=== PATIENT | male | born 1960 | race Two or more races ===

== ENCOUNTER 2018-02-17 11:27 | Emergency (ER) | payer SELFPAY | END 2018-02-17 12:47 | disposition home or self-care (01) | LOC: ER 12:47 | DX: J02.9 Acute pharyngitis, unspecified (principal); H66.93 Otitis media, unspecified, bilateral; F17.200 Nicotine dependence, unspecified, uncomplicated | CPT/HCPCS: 99283 ==

== ENCOUNTER 2019-03-24 11:00 | Emergency (ER) | payer SELFPAY ==
[~2019-03-24] VITALS: Ht 165.1 cm; Wt 68.0 kg
[2019-03-24 11:00] VITALS: BP 111/79
[~2019-03-24 11:00] MED LIST: AMOX500T PO; CYCL10TA2 PO; HYDR-2761 PO; IBUP-1007 PO; NAPR250T6 PO; PRED50TA PO
--- NOTE | 2019-03-24 11:32 | PHYS DOC ---
Past Medical History Past Medical History: No Pertinent History Past Surgical History: No Surgical History Alcohol Use: Occasionally Drug Use: None Adult General Chief Complaint Chief Complaint: SHOULDER INJURY [facility] HPI Patient is a 59 year old male who presents with right scapula pain with movement since Monday night. 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 Patient does not remember injuring her pulling a muscle in his back. Patient rates his pain a 10 out of 10 and states it's sharp and tight. Review of Systems Review of Systems Constitutional: Denies fever or chills [] Eyes: Denies change in visual acuity, redness, or eye pain [] HENT: Denies nasal congestion or sore throat [] Respiratory: Denies cough or shortness of breath [] Cardiovascular: No additional information not addressed in HPI [] GI: Denies abdominal pain, nausea, vomiting, bloody stools or diarrhea [] : Denies dysuria or hematuria [] Musculoskeletal: Right scapula back pain or joint pain [] Integument: Denies rash or skin lesions [] Neurologic: Denies headache, focal weakness or sensory changes [] Endocrine: Denies polyuria or polydipsia [] All other systems were reviewed and found to be within normal limits, except as documented in this note. Allergies Allergies Allergies Coded Allergies Type Severity Reaction Last Updated Verified No Known Drug Allergies 07/09/16 No Physical Exam Physical Exam Constitutional: Well developed, well nourished, no acute distress, non-toxic a ppearance. [] HENT: Normocephalic, atraumatic, bilateral external ears normal, oropharynx moist, no oral exudates, nose normal. [] Eyes: PERRLA, EOMI, conjunctiva normal, no discharge. [] Neck: Normal range of motion, no tenderness, supple, no stridor. [] Cardiovascular:Heart rate regular rhythm, no murmur [] Lungs & Thorax: Bilateral breath sounds clear to auscultation [] Abdomen: Bowel sounds normal, soft, no tenderness, no masses, no pulsatile masses. [] Skin: Warm, dry, no erythema, no rash. [] Back: Right scapula tenderness, no CVA tenderness. [] Extremities: Denies tenderness, no cyanosis, no clubbing, ROM intact, no edema. [] Neurologic: Alert and oriented X 3, normal motor function, normal sensory function, no focal deficits noted. [] Psychologic: Affect normal, judgement normal, mood normal. [] Current Patient Data Vital Signs Vital Signs Date Time Temp Pulse Resp B/P (MAP) Pulse Ox O2 Delivery O2 Flow Rate FiO2 03/24/19 11:00 98.3 90 16 111/79 (90) 98 Room Air 98.3 EKG EKG [] Radiology/Procedures Radiology/Procedures [] Course & Med Decision Making Course & Med Decision Making Patient is a 59 year old male who presents with right scapula pain with movement since Monday night. 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 Patient does not remember injuring her pulling a muscle in his back. Patient rates his pain a 10 out of 10 and states it's sharp and tight. There is some tenderness over the scapula area in right with palpation and pain with movement of the right extremity. Patient has full range of motion of the right arm. There is no bruising or deformity seen or felt. There is no swelling to the right arm or to the back. Ambulatory with steady gait. Skin pink warm and dry. Patient denies a history and takes no medications daily. Patient states she's been taking aspirins for the pain but is not helping. Alert and oriented. Patient is given muscle relaxers, Erwin and told to take ibuprofen instead of aspirin. Dragon Disclaimer Dragon Disclaimer This electronic medical record was generated, in whole or in part, using a voice recognition dictation system. Departure Departure Impression: Primary Impression: Muscle strain Disposition: 01 HOME, SELF-CARE Condition: STABLE Referrals: NO PCP (PCP) Patient Instructions: Muscle Strain Additional Instructions: Follow-up with primary care provider. Take medications as prescribed. Remember do not take while you are at work. Only take ibuprofen or Tylenol if you are working as a medication to make you sleepy. Scripts Ibuprofen (IBUPROFEN) 600 Mg Tablet 600 MG PO PRN Q6HRS PRN for INFLAMMATION, #20 TAB Prov: RUSS LUEVANO BRAIDER OPERATOR 03/24/19 Hydrocodone/Apap 5-325 (NORCO 5-325 TABLET) 1 Each Tablet 1 TAB PO PRN Q6HRS PRN for PAIN, #10 TAB 0 Refills Prov: RUSS LUEVANO APRN 03/24/19 Orphenadrine Citrate (ORPHENADRINE CITRATE) 100 Mg Tablet.er 1 TAB PO BID, #20 TAB 1 Refill Prov: RUSS LUEVANO APRN 03/24/19 RUSS LUEVANO APRN Mar 24, 2019 11:32
[2019-03-24] MEDS ORDERED: HYDR-3164 PO (11:38)
[2019-03-24] MEDS ORDERED: ORPH100T PO (11:38)
[2019-03-24] MEDS ORDERED: IBUP-1007 PO (11:38)
== END 2019-03-24 11:43 | disposition home or self-care (01) ==
LOC: ER 11:00
DX: S46.811A Strain of other muscles, fascia and tendons at shoulder and upper arm level, right arm, initial encounter (principal); X50.0XXA Overexertion from strenuous movement or load, initial encounter; Y93.89 Activity, other specified; Y92.89 Other specified places as the place of occurrence of the external cause; Y99.0 Civilian activity done for income or pay
CPT/HCPCS: 99283

== ENCOUNTER → 2020-07-03 | Emergency (ER) | payer SELFPAY ==
[~2020-07-03] VITALS: Ht 165.1 cm; Wt 72.3 kg
[~2020-07-03] MED LIST changes: +AMOX500C PO; +CHLO15MO2 PO; +CONTRAST GIVEN. MC PRN; +HYDR-3164 PO; +IOHEXOL 300 MG/ML 100ML VIAL. IV ONE; +ORPH100T PO
[2020-07-03 11:12] LABS: BASO # 0.1 x10^3/uL (0.0-0.2); BASO % 0 % (0-3); EOS # 0.1 x10^3/uL (0.0-0.7); EOS % 1 % (0-3); HEMATOCRIT 44.7 % (39.0-53.0); HEMOGLOBIN 15.3 g/dL (13.0-17.5); LYMPH # 1.7 x10^3/uL (1.0-4.8); LYMPH % 14 % (24-48); MEAN CORPUSCULAR HEMOGLOBIN 32 pg (25-35); MEAN CORPUSCULAR HGB CONC 34 g/dL (31-37); MEAN CORPUSCULAR VOLUME 93 fL (79-100); MONO # 0.9 x10^3/uL (0.0-1.1); MONO % 8 % (0-9); NEUT # 9.5 x10^3/uL (1.8-7.7); NEUT % 78 % (31-73); PLATELET COUNT 242 x10^3/uL (140-400); RED CELL DISTRIBUTION WIDTH 13.4 % (11.5-14.5); WHITE BLOOD COUNT 12.2 x10^3/uL (4.0-11.0)
[2020-07-03 11:23] LABS: CREATININE 0.8 mg/dL (0.7-1.3); GFR 99.3; POTASSIUM 4.1 mmol/L (3.5-5.1)
[2020-07-03 11:29] LABS: ALBUMIN/GLOBULIN RATIO 1.3 (1.0-1.7); TOTAL BILIRUBIN 0.7 mg/dL (0.2-1.0); TOTAL PROTEIN 7.1 g/dL (6.4-8.2)
--- NOTE | 2020-07-03 12:05 | RAD ---
PQRS Compliance Statement: One or more of the following individualized dose reduction techniques were utilized for this examination: 1. Automated exposure control 2. Adjustment of the mA and/or kV according to patient size 3. Use of iterative reconstruction technique CT MAXILLOFACIAL W/CONTRAST 07/03/2020 10:33 AM Indication: Ulceration of tongue 4 mild and swelling of the neck COMPARISON: None available. TECHNIQUE: Multiple CT images of the maxillofacial structures were obtained after the intravenous administration of 70 cc Omnipaque 300. Coronal and sagittal reformats are provided. FINDINGS: There is no suspicious enhancement involving the visualized portions of brain parenchyma and posterior fossa. Orbits are normal in appearance. Globes are spherical and contour. No lens dislocation. Extraocular muscles are intact. There is mild mucosal thickening of the left maxillary sinus. Mild mucosal thickening of the right ethmoid air cells. Mild mucosal thickening of the sphenoid sinus. No acute fracture of the maxillofacial structures. Nasal bones are intact. There is minimal deviation of the nasal bone to the left with nasal spur. [place] spaces normal in appearance. Platysma is intact. No significant subcutaneous edema. No pathologically enlarged cervical lymph nodes are identified. Multiple nonenlarged cervical lymph nodes are present. Cervical lymph nodes measure up to 8 mm in the right and 11 mm left level 2 cervical distribution. Parotid and 70 was spaces are intact. A definite tongue mass is not visualized by CT. Genioglossus, hyoglossus and mylohyoid appear intact. No soft tissue abscess is visualized. Parapharyngeal fat is preserved. There is lucency involving the root of the left maxillary incisor with absent tooth. There may be minimal soft tissue swelling of the upper lip. IMPRESSION: No definite abscess is identified within the neck. Suspect mild swelling about the left. Lucency involving the root of the left maxillary incisor could reflect loss of the tooth. Correlate with any recent trauma. No pathologically enlarged lymph nodes within the cervical distribution. Electronically signed by: Brenda Jameson MD (07/03/2020 12:02 PM) [facility]
--- NOTE | 2020-07-03 12:26 | ED.ADGEN ---
Past Medical History Past Medical History: No Pertinent History Past Surgical History: No Surgical History Smoking Status: Current Every Day Smoker Alcohol Use: Occasionally Drug Use: None General Adult EDM: Chief Complaint: TONGUE SWELLING/INJURY HPI: HPI: Patient is a 60-year-old male who presents to the emergency room with an ulceration to his tongue and the floor of his mouth. Patient denies any other symptoms. He has not been ill. He does not have rash anywhere else. He states this is happened one other time and it resolved after swishing with peroxide. He does not typically follow with a physician. He denies any fevers, chills, difficulty swallowing, difficulty talking. He states that this happened overnight. His mouth was normal yesterday and he noticed it this morning when he woke up. Review of Systems: Review of Systems: Complete ROS is negative unless otherwise documented in HPI Current Medications: Current Medications Medications (Trade) Dose Ordered Sig/Dorothy Start Time Stop Time Status Last Admin Dose Admin Info (CONTRAST GIVEN -- Rx MONITORING) 1 each PRN DAILY PRN 07/03/20 12:00 07/05/20 11:59 Iohexol (Omnipaque 300 Mg/ml) 70 ml 1X ONCE 07/03/20 12:00 07/03/20 12:01 DC 07/03/20 12:02 70 ML Allergies: Allergies: Allergies Coded Allergies Type Severity Reaction Last Updated Verified No Known Drug Allergies 07/09/16 No Physical Exam: PE: General: Awake, alert, NAD. Well Nourished, well hydrated. Cooperative HEENT: Atraumatic, EOMI, PERRL, airway patent, moist oral mucosa, ulceration to the tip of the tongue and floor of the mouth with minimal swelling under the jaw, no other lesions, no swelling to the throat, poor dentition Neck: Supple, trachea midline Respiratory: CTA bilaterally, normal effort, no wheezing/crackles CV: RRR, no murmur, cap refill <2 GI: Soft, nondistended, nontender, no masses MSK: No obvious deformities Skin: Warm, dry, intact Neuro: A&O x3, speech NL, sensory and motor grossly intact, no focal deficits Psych: Normal affect, normal mood, not suicidal or homicidal Current Patient Data: Labs: Laboratory Tests Test 07/03/20 10:54 White Blood Count 12.2 x10^3/uL (4.0-11.0) H Red Blood Count 4.80 x10^6/uL (4.30-5.70) Hemoglobin 15.3 g/dL (13.0-17.5) Hematocrit 44.7 % (39.0-53.0) Mean Corpuscular Volume 93 fL (79-100) Mean Corpuscular Hemoglobin 32 pg (25-35) Mean Corpuscular Hemoglobin Concent 34 g/dL (31-37) Red Cell Distribution Width 13.4 % (11.5-14.5) Platelet Count 242 x10^3/uL (140-400) Neutrophils (%) (Auto) 78 % (31-73) H Lymphocytes (%) (Auto) 14 % (24-48) L Monocytes (%) (Auto) 8 % (0-9) Eosinophils (%) (Auto) 1 % (0-3) Basophils (%) (Auto) 0 % (0-3) Neutrophils # (Auto) 9.5 x10^3/uL (1.8-7.7) H Lymphocytes # (Auto) 1.7 x10^3/uL (1.0-4.8) Monocytes # (Auto) 0.9 x10^3/uL (0.0-1.1) Eosinophils # (Auto) 0.1 x10^3/uL (0.0-0.7) Basophils # (Auto) 0.1 x10^3/uL (0.0-0.2) Sodium Level 139 mmol/L (136-145) Potassium Level 4.1 mmol/L (3.5-5.1) Chloride Level 104 mmol/L (98-107) Carbon Dioxide Level 26 mmol/L (21-32) Anion Gap 9 (6-14) Blood Urea Nitrogen 11 mg/dL (8-26) Creatinine 0.8 mg/dL (0.7-1.3) Estimated GFR (Cockcroft-Gault) 99.3 BUN/Creatinine Ratio 14 (6-20) Glucose Level 95 mg/dL (70-99) Calcium Level 9.0 mg/dL (8.5-10.1) Total Bilirubin 0.7 mg/dL (0.2-1.0) Aspartate Amino Transferase (AST) 15 U/L (15-37) Alanine Aminotransferase (ALT) 18 U/L (16-63) Alkaline Phosphatase 63 U/L (46-116) Total Protein 7.1 g/dL (6.4-8.2) Albumin 4.0 g/dL (3.4-5.0) Albumin/Globulin Ratio 1.3 (1.0-1.7) Laboratory Tests 07/03/20 10:54 Laboratory Tests 07/03/20 10:54 Vital Signs: Vital Signs Date Time Temp Pulse Resp B/P (MAP) Pulse Ox O2 Delivery O2 Flow Rate FiO2 07/03/20 10:25 98.5 101 16 129/88 (102) 96 Room Air 98.5 EKG: EKG: [] Heart Score: Risk Factors: Risk Factors: DM, Current or recent (<one month) smoker, HTN, HLP, family history of CAD, obesity. Risk Scores: Score 0 - 3: 2.5% MACE over next 6 weeks - Discharge Home Score 4 - 6: 20.3% MACE over next 6 weeks - Admit for Clinical Observation Score 7 - 10: 72.7% MACE over next 6 weeks - Early Invasive Strategies Radiology/Procedures: Radiology/Procedures: [] Course & Med Decision Making: Course & Med Decision Making Pertinent Labs and Imaging studies reviewed. (See chart for details) Patient is 60-year-old male who presents to the emergency room with a laceration to the tongue. Patient is overall well-appearing. He does not have any other rash. This does not appear concerning for Boubacar Dom syndrome. Given that this occurred overnight this makes it less likely to be oral cancer. CT was done and shows a infected to with surrounding swelling. This could be traumatic ulceration. We will put him on antibiotics and Peridex. I have discussed with him that it is very important he follows up with a dentist. We have discussed that if these do not improve and he will need to see a dentist as soon as possible or return to the emergency room. Patient's test results and vitals while in the ED were fully reviewed and discussed with the patient. Patient is stable and at this time does not need admission to the hospital. We have discussed strict return precautions and the importance of following up with their Primary Care Physician. Patient stated understanding and was given an opportunity to ask any questions. Patient is in agreement with plan. Aaron Disclaimer: Aaron Disclaimer: This electronic medical record was generated, in whole or in part, using a voice recognition dictation system. Departure Departure Impression: Primary Impression: Tongue ulceration Additional Impression: Tooth infection Disposition: 01 DC HOME SELF CARE/HOMELESS Condition: STABLE Referrals: NO PCP (PCP) Patient Instructions: Dental Injury, Oral Ulcers Scripts Amoxicillin (AMOXICILLIN) 500 Mg Capsule 1 CAP PO Q8HRS for infection for 7 Days, #21 CAP Prov: ANGELA DE PAZ MD 07/03/20 Chlorhexidine Gluconate (PERIDEX) 15 Ml Mouthwash 15-30 ML PO TID for 8 Days, #473 ML 0 Refills Prov: ANGELA DE PAZ MD 07/03/20 Problem Qualifiers ANGELA DE PAZ MD Jul 03, 2020 12:25
[2020-07-03 12:45] VITALS: BP 124/86
== END ==
LOC: ER 10:09
DX: K14.0 Glossitis (principal); K04.7 Periapical abscess without sinus; F17.200 Nicotine dependence, unspecified, uncomplicated
CPT/HCPCS: 36415; 70487; 80053; 85025; 99285; Q9967

== ENCOUNTER 2021-06-26 10:02 | Emergency (ER) | payer SELFPAY ==
[~2021-06-26] VITALS: Ht 172.7 cm; Wt 82.0 kg
[~2021-06-26 10:02] MED LIST changes: -CONTRAST GIVEN. MC PRN; +CYCL10TA19 PO; -CYCL10TA2 PO; -IOHEXOL 300 MG/ML 100ML VIAL. IV ONE; +NAPR-699 PO; -NAPR250T6 PO
[2021-06-26 10:10] VITALS: BP 133/83
[2021-06-26] MEDS ORDERED: oxyCODONE IR 5 MG TABLET PO ONE (10:30)
[2021-06-26] MEDS ORDERED: MORPHINE SULFATE 4 MG/ML INJ. IVP ONE (10:30)
--- NOTE | 2021-06-26 10:45 | PHYS DOC ---
Past Medical History Past Medical History: No Pertinent History Past Surgical History: No Surgical History Smoking Status: Current Every Day Smoker Alcohol Use: Occasionally Drug Use: None General Adult EDM: Chief Complaint: BACK PAIN OR INJURY HPI: HPI: Patient is a 61 year old male who presents with with complaints of right-sided back pain. 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 Struck him in the right- sided lower ribs. Has been taking diclofenac, cyclobenzaprine, and hydrocodone without relief in his pain. Worse with movement. Pain is constant. Does not radiate. No numbness, tingling, or weakness in the legs. Review of Systems: Review of Systems: Constitutional: Denies fever or chills. [] Eyes: Denies change in visual acuity. [] HENT: Denies nasal congestion or sore throat. [] Respiratory: Denies cough or shortness of breath. [] Cardiovascular: Denies chest pain or edema. [] GI: Denies abdominal pain, nausea, vomiting, bloody stools or diarrhea. [] : Denies dysuria. [] Musculoskeletal: Reports right-sided back/thoracic pain Integument: Denies rash. [] Neurologic: Denies headache, focal weakness or sensory changes. [] Endocrine: Denies polyuria or polydipsia. [] Lymphatic: Denies swollen glands. [] Psychiatric: Denies depression or anxiety. [] Heart Score: C/O Chest Pain: No Risk Factors: Risk Factors: DM, Current or recent (<one month) smoker, HTN, HLP, family history of CAD, obesity. Risk Scores: Score 0 - 3: 2.5% MACE over next 6 weeks - Discharge Home Score 4 - 6: 20.3% MACE over next 6 weeks - Admit for Clinical Observation Score 7 - 10: 72.7% MACE over next 6 weeks - Early Invasive Strategies Current Medications: Current Medications Medications (Trade) Dose Ordered Sig/Dorothy Start Time Stop Time Status Last Admin Dose Admin Morphine Sulfate (Morphine Sulfate) 4 mg 1X ONCE 06/26/21 10:30 06/26/21 10:30 DC Oxycodone HCl (Roxicodone) 10 mg 1X ONCE 06/26/21 10:30 06/26/21 10:33 DC Allergies: Allergies: Allergies Coded Allergies Type Severity Reaction Last Updated Verified No Known Drug Allergies 06/26/21 No Physical Exam: PE: Constitutional: Well developed, well nourished, no acute distress, non-toxic appearance. [] HENT: Normocephalic, atraumatic, bilateral external ears normal, oropharynx moist, no oral exudates, nose normal. [] Eyes: PERRLA, EOMI, conjunctiva normal, no discharge. [] Neck: Normal range of motion, no tenderness, supple, no stridor. [] Cardiovascular:Heart rate regular rhythm, no murmur [] Lungs & Thorax: Tenderness to palpation over the right lower posterior ribs and right lower lateral ribs. Breath sounds are present bilaterally. Abdomen: Soft, nondistended, tender in the right upper quadrant. Skin: Warm, dry, no erythema, no rash. [] Back: No tenderness, no CVA tenderness. [] Extremities: No tenderness, no cyanosis, no clubbing, ROM intact, no edema. [] Neurologic: Alert and oriented X 3, normal motor function, normal sensory function, no focal deficits noted. [] Psychologic: Affect normal, judgement normal, mood normal. [] Current Patient Data: Vital Signs: Vital Signs Date Time Temp Pulse Resp B/P (MAP) Pulse Ox O2 Delivery O2 Flow Rate FiO2 06/26/21 10:10 98.2 115 18 133/83 (100) 98 Room Air 98.2 EKG: EKG: [] Radiology/Procedures: Radiology/Procedures: [] Impression: [facility] [address] [facility] [place], [place] [id number] IMAGING REPORT Signed PATIENT: BRANDEE JIMENEZACCOUNT: [id number] : 1960 LOCATION: ER AGE: 61 SEX: M EXAM STATUS: REG ER ORD. PHYSICIAN: ANA REEDER MD REASON: R posterior lower rib trauma, tenderness in RUQ PROCEDURE: CT CHEST ABD PELVIS W/CONTRAST EXAMINATION: CT chest, abdomen and pelvis with IV contrast. INDICATION:61 years, Male, right posterior lower rib trauma, tenderness in the right upper quadrant. TECHNIQUE: Axial CT images of the chest, abdomen and pelvis were obtained. Coronal and sagittal reformatted performed. COMPARISON: None. Exposure: One or more of the following individualized dose reduction techniques were utilized for this examination: 1. Automated exposure control 2. Adjustment of the mA and/or kV according to patient size 3. Use of iterative reconstruction technique. FINDINGS: CHEST: Visualized thyroid and esophagus are unremarkable. No lymphadenopathy in the c hest by size criteria. Normal cardiac size with no pericardial effusion. No significant coronary artery atherosclerotic lesions. Normal caliber thoracic aorta and pulmonary arteries. Central airways are patent. No focal consolidation, pleural effusion or pneumothorax. There is a 2 mm pulmonary nodule in the left upper lobe (series 2 image 29). There is a 5 mm pulmonary nodule in the right lung apex (series 2 image 13). Right posterior pleural thickening. ABDOMEN/PELVIS: Liver, gallbladder, biliary ducts, spleen, pancreas, adrenal glands and kidneys are unremarkable. No bowel obstruction or diverticulosis without acute diverticulitis. Small uncomplicated duodenal diverticulum. Normal appendix. Patent abdominal aorta, mesenteric arteries and portal vein. No pneumoperitoneum or ascites. No abdominopelvic lymphadenopathy by size criteria. Unremarkable urinary bladder. Prostatomegaly indents bladder base. MUSCULOSKELETAL: Acute right posterior 11th and 10th rib fractures adjacent to the costovertebral junctions. Mild multilevel degenerative changes in the spine. Small fat- containing midline epigastric ventral hernia. Small to moderate fat-containing bilateral groin hernias. IMPRESSION: 1. Acute right posterior 11th and 10th rib fractures adjacent to the costov ertebral junctions. 2. No acute traumatic injury to the abdomen or pelvis. 3. Sub-6 mm bilateral upper lobes pulmonary nodules. High-risk patient, consider 12 months follow-up with CT chest. 4. Prostamegaly indents bladder base. Consider correlation with PSA. Electronically signed by: Willy Brito MD (06/26/2021 11:46 AM) [id number] DICTATED and SIGNED BY: WILLY BRITO MD DATE: 06/26/21 [id number] 0 Course & Med Decision Making: Course & Med Decision Making Pertinent Labs and Imaging studies reviewed. (See chart for details) Patient 61-year-old male who presents with right sided thoracic/back pain after a cinderblock landed on his right lower posterior ribs approximately 10 days ago. Afebrile, hemodynamically stable, on room air. Breath sounds are present bilaterally. He does have significant lower rib tenderness posteriorly, laterally, and right upper quadrant tenderness to palpation. Concern for rib fracture and potentially hepatic or renal injury. CT chest/abdomen/pelvis ordered. 1055 CT shows posterior 10th and 11th rib fractures on the right. Nondisplaced. No evidence of pneumothorax, hemothorax, or liver injury. Pain better controlled with oxycodone in the emergency department. Feel he is safe for discharge with a short course of oxycodone and PCP follow-up. Discussed pulmonary exercises, frequent ambulation, and avoidance of activities that increase pain. Return precautions for fever/chills, shortness of breath. 1221 Dragon Disclaimer: Dragon Disclaimer: This electronic medical record was generated, in whole or in part, using a voice recognition dictation system. Departure Departure Impression: Primary Impression: Multiple rib fractures Referrals: NO PCP (PCP) Patient Instructions: Rib Fracture Additional Instructions: You can continue to take the cyclobenzaprine and diclofenac pills as previously prescribed You can take Tylenol 1000 mg every 6 hours for pain as well. For pain that is not controlled by this you can take oxycodone 5-10 mg (1-2 tablets) every 6 hours. Please avoid activities that make the pain worse. Please try to go on several walks a day. Do deep breathing exercises. If you develop fever/chills, or shortness of breath please return to the emergency department for reevaluation. Otherwise please follow-up with your primary care doctor to ensure your symptoms are adequately managed. This may take up to a month to begin to get back to baseline. Oxycodone is a narcotic medication and can make you tired and impaired. Do not drive or operate machinery while taking oxycodone. 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 It can also make you constipated so please consider taking docusate and miralax (as directed by over the counter directions) to prevent constipation. Please try to take as little oxycodone as possible and wean yourself off as soon as you are able because it is an addictive medication. Scripts Oxycodone Hcl (OXYCODONE HCL) 5 Mg Capsule 5-10 MG PO PRN Q6HRS PRN for PAIN, #16 TAB 0 Refills Prov: ANA REEDER MD 06/26/21 ANA REEDER MD Jun 26, 2021 10:45
[2021-06-26 10:58] LABS: BASO # 0.1 x10^3/uL (0.0-0.2); BASO % 1 % (0-3); EOS # 0.2 x10^3/uL (0.0-0.7); EOS % 4 % (0-3); HEMATOCRIT 43.7 % (39.0-53.0); HEMOGLOBIN 14.5 g/dL (13.0-17.5); LYMPH # 1.6 x10^3/uL (1.0-4.8); LYMPH % 24 % (24-48); MEAN CORPUSCULAR HEMOGLOBIN 32 pg (25-35); MEAN CORPUSCULAR HGB CONC 33 g/dL (31-37); MEAN CORPUSCULAR VOLUME 95 fL (79-100); MONO # 0.6 x10^3/uL (0.0-1.1); MONO % 10 % (0-9); NEUT # 4.1 x10^3/uL (1.8-7.7); NEUT % 62 % (31-73); PLATELET COUNT 251 x10^3/uL (140-400); RED BLOOD COUNT 4.58 x10^6/uL (4.30-5.70); RED CELL DISTRIBUTION WIDTH 13.4 % (11.5-14.5); WHITE BLOOD COUNT 6.6 x10^3/uL (4.0-11.0)
[2021-06-26 11:04] LABS: CALCIUM 8.4 mg/dL (8.5-10.1); CREATININE 0.9 mg/dL (0.7-1.3); GFR 86.4
[2021-06-26 11:11] LABS: ALBUMIN 3.7 g/dL (3.4-5.0); ALBUMIN/GLOBULIN RATIO 1.2 (1.0-1.7); TOTAL BILIRUBIN 0.6 mg/dL (0.2-1.0); TOTAL PROTEIN 6.8 g/dL (6.4-8.2)
[2021-06-26] MEDS ORDERED: IOHEXOL 300 MG/ML 100ML VIAL. IV ONE (11:45)
[2021-06-26] MEDS ORDERED: CONTRAST GIVEN. MC PRN (11:45)
--- NOTE | 2021-06-26 11:49 | RAD ---
EXAMINATION: CT chest, abdomen and pelvis with IV contrast. INDICATION:61 years, Male, right posterior lower rib trauma, tenderness in the right upper quadrant. TECHNIQUE: Axial CT images of the chest, abdomen and pelvis were obtained. Coronal and sagittal refor matted performed. COMPARISON: None. Exposure: One or more of the following individualized dose reduction techniques were utilized for thi s examination: 1. Automated exposure control 2. Adjustment of the mA and/or kV according to patient size 3. Use of iterative reconstruction technique. FINDINGS: CHEST: Visualized thyroid and esophagus are unremarkable. No lymphadenopathy in the chest by size criteria. Normal cardiac size with no pericardial effusion. No significant coronary artery atherosclerotic lesi ons. Normal caliber thoracic aorta and pulmonary arteries. Central airways are patent. No focal conso lidation, pleural effusion or pneumothorax. There is a 2 mm pulmonary nodule in the left upper lobe ( series 2 image 29). There is a 5 mm pulmonary nodule in the right lung apex (series 2 image 13). Righ t posterior pleural thickening. ABDOMEN/PELVIS: Liver, gallbladder, biliary ducts, spleen, pancreas, adrenal glands and kidneys are unremarkable. No bowel obstruction or diverticulosis without acute diverticulitis. Small uncomplicated duodenal divert iculum. Normal appendix. Patent abdominal aorta, mesenteric arteries and portal vein. No pneumoperito neum or ascites. No abdominopelvic lymphadenopathy by size criteria. Unremarkable urinary bladder. Pr ostatomegaly indents bladder base. MUSCULOSKELETAL: Acute right posterior 11th and 10th rib fractures adjacent to the costovertebral junctions. Mild mult ilevel degenerative changes in the spine. Small fat-containing midline epigastric ventral hernia. Sma ll to moderate fat-containing bilateral groin hernias. IMPRESSION: 1. Acute right posterior 11th and 10th rib fractures adjacent to the costovertebral junctions. 2. No acute traumatic injury to the abdomen or pelvis. 3. Sub-6 mm bilateral upper lobes pulmonary nodules. High-risk patient, consider 12 months follow-up with CT chest. 4. Prostamegaly indents bladder base. Consider correlation with PSA. Electronically signed by: Candido Brito MD (06/26/2021 11:46 AM) [id number]
[2021-06-26] MEDS ORDERED: OXYC5CAP PO (12:24)
== END 2021-06-26 12:35 | disposition home or self-care (01) ==
LOC: ER 10:02
DX: S22.41XA Multiple fractures of ribs, right side, initial encounter for closed fracture (principal); F17.200 Nicotine dependence, unspecified, uncomplicated; W20.8XXA Other cause of strike by thrown, projected or falling object, initial encounter; Y93.H3 Activity, building and construction; Y92.61 Building [any] under construction as the place of occurrence of the external cause; Y99.0 Civilian activity done for income or pay
CPT/HCPCS: 36415; 71260; 74177; 80053; 85025; 99285; Q9967